=== PATIENT | female | born 2005 | race Hispanic/Latino ===

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

== ENCOUNTER 2024-09-27 08:39 | Emergency (ER) | payer SELFPAY ==
[2024-09-27] MEDS ORDERED: KETOROLAC 30 MG/ML INJ ONE (09:04)
[2024-09-27] MEDS ORDERED: ONDANSETRON 4 MG/2 ML VIAL ONE (09:04)
[2024-09-27] MEDS ORDERED: DICYCLOMINE HCL 20 MG/2 ML AMP IM ONE (09:05)
[2024-09-27] MEDS ORDERED: FAMOTIDINE 20 MG/2 ML VIAL IV ONE (09:05)
[2024-09-27] MEDS ORDERED: NA CHLORIDE 0.9% 1,000 ML ONE (09:05)
[2024-09-27 09:33] LABS: Absolute Lymphocytes (CBC) 0.5 K/uL (0.7-4.9); Absolute Monocytes 0.4 K/uL (0.1-1.3); Absolute Neutrophil 15.1 K/uL (1.8-8.0); Basophils % 0.2 % (0-1.3); Hematocrit 43.1 % (36.0-45.0); Hemoglobin 14.7 g/dL (12.0-15.0); Lymphocytes % 3.3 % (15.3-44.8); MCH 30.9 pg (27.0-35.0); MCHC 34.1 g/dL (32.0-36.0); MCV 90.7 fL (80-100); MPV 7.6 fL (7.6-11.3); Monocytes % 2.6 % (3.3-12.3); Neutrophils % 93.9 % (41.7-73.7); Platelets 281 thou/uL (152-406); RBC Red Blood Cell Count 4.75 M/uL (3.86-4.86); Red Cell Distribution Width 12.8 % (12.1-15.2)
[2024-09-27 09:43] LABS: Albumin 4.8 g/dL (3.4-5.0); Albumin/Globulin Ratio 1.2 (1.1-1.8); Anion Gap 8.5 mEq/L (5.0-15.0); Bilirubin Total 0.5 mg/dL (0.2-1.0); Globulin 3.9 g/dL (2.3-3.5); Potassium 3.5 mEq/L (3.5-5.1); Protein, Total 8.7 g/dL (6.4-8.2)
[2024-09-27 10:13] LABS: Blood Morphology Comment NOT SEEN (NOT SEEN); Platelet Estimate ADEQ; White Blood Cell Scan OK (OK)
[2024-09-27] MEDS ORDERED: droPERidol 5 MG/2 ML VIAL ONE (10:17)
[2024-09-27] MEDS ORDERED: MAGNES/ALUMIN/SIMET 30ML UCUP ONE (10:17)
[2024-09-27] MEDS ORDERED: LIDOCAINE VISCOUS 2% 10ML ORAL SOLN ONE (10:18)
--- NOTE | 2024-09-27 11:08 | RAD REPORT ---
EXAMINATION: CT ABDOMEN AND PELVIS WITH CONTRAST CLINICAL INDICATION: Abdominal pain TECHNIQUE: CT abdomen and pelvis was performed, after the administration of 100 cc Isovue-300.. Sagit miguel angel and coronal reconstructions were obtained. One or more of the following dose reduction techniques were used: Automated exposure control, adjustment of the mA and kV according to patient si ze, and iterative reconstruction. Unless otherwise specified, incidental findings do not require dedicated imaging follow-up. [id number]. Oral contrast was not given which limits evaluation of bowel and appendix. COMPARISON: none FINDINGS: Liver, spleen, pancreas, adrenals and kidneys appear unremarkable The wall of several loops of jejunum thickened. No adnexal mass. Although the appendix is mildly dilated. It does not contain fluid. It mostly contains air. The wall does not appear edematous. Several small areas of increased density are present within the appendix. There is no stranding within the adjacent fat. No evidence of diverticulitis. Small calcification right lower quadrant probably a phlebolith. : IMPRESSION: Thickening of the wall of several loops of jejunum may indicate inflammation. Several small areas of increased density within the appendix could represent appendicoliths or contra st from previous imaging. Although the appendix is mildly dilated appendicitis is not suspected. However, if the patient continues to have symptoms to suggest this then follow-up CT with oral contra st and opacification of the terminal ileum/cecum would be recommended
--- NOTE | 2024-09-27 11:39 | ER ---
Nurse's Notes [facility] Name: Racheal Coughlin Age: 18 yrs Sex: Female : 2005 Arrival Date: 09/27/2024 Time: 08:39 Bed 20 Private MD: Diagnosis: Other viral enteritis Presentation: 09/27 08:55 Chief complaint: N/V/D and abdominal pain since last night. Not tolerating fluids. hb Coronavirus screen: Client presents with at least one sign or symptom that may indicate coronavirus-19. Standard/surgical mask placed on the client. Provider contacted for isolation considerations. Ebola Screen: No symptoms or risks identified at this time. Initial Sepsis Screen: Does the patient meet any 2 criteria? No. Patient's initial sepsis screen is negative. Does the patient have a suspected source of infection? No. Patient's initial sepsis screen is negative. Risk Assessment: Do you want to hurt yourself or someone else? Patient reports no desire to harm self or others. Onset of symptoms was September 26, 2024. 08:55 Method Of Arrival: Ambulatory 08:55 Acuity: SOLIS 3 hb Historical: - Allergies: 08:56 No Known Allergies; hb - Home Meds: 08:56 None [Active]; hb - PMHx: 08:56 None; hb - PSHx: 08:56 None; hb - Immunization history:: Adult Immunizations up to date. - Infectious Disease History:: Denies. - Social history:: Smoking status: Patient denies any tobacco usage or history of. - Family history:: not pertinent. Screenin:22 [facility] ED Fall Risk Assessment (Adult) History of falling in the last 3 months, kc6 including since admission No falls in past 3 months (0 pts) Confusion or Disorientation No (0 pts) Intoxicated or Sedated No (0 pts) Impaired Gait No (0 pts) Mobility Assist Device Used No (0 pt) Altered Elimination No (0 pt) Score/Fall Risk Level 0 - 2 = Low Risk Oriented to surroundings. Abuse screen: Denies threats or abuse. Denies injuries from another. Nutritional screening: No deficits noted. Tuberculosis screening: No symptoms or risk factors identified. Assessment: 09:21 General: Appears in no apparent distress. uncomfortable, well groomed, well developed, kc6 Behavior is cooperative, agitated. Pain: Complains of pain in abdomen. Neuro: Level of Consciousness is awake, alert, obeys commands, Oriented to person, place, time, situation, Appropriate for age. Cardiovascular: Capillary refill < 3 seconds. Respiratory: Airway is patent Trachea midline Respiratory effort is even, unlabored, Respiratory pattern is regular, symmetrical. GI: Abdomen is flat, non-distended, Pt is actively vomiting bile, Reports diarrhea, intolerance of fluids, intolerance of food, nausea, vomiting. : No signs and/or symptoms were reported regarding the genitourinary system. EENT: No signs and/or symptoms were reported regarding the EENT system. Derm: No signs and/or symptoms reported regarding the dermatologic system. Skin is intact, is healthy with good turgor, Skin is pink, warm \T\ dry. Musculoskeletal: No signs and/or symptoms reported regarding the musculoskeletal system. Circulation, motion, and sensation intact. Capillary refill < 3 seconds, Range of motion: intact in all extremities. 10:21 Reassessment: Patient appears in no apparent distress at this time. No changes from kc6 previously documented assessment. Patient and/or family updated on plan of care and expected duration. Pain level reassessed. Patient is alert, oriented x 3, equal unlabored respirations, skin warm/dry/pink. 11:12 Reassessment: Patient appears in no apparent distress at this time. No changes from kc6 previously documented assessment. Patient and/or family updated on plan of care and expected duration. Pain level reassessed. Patient is alert, oriented x 3, equal unlabored respirations, skin warm/dry/pink. Vital Signs: 08:55 BP 159 / 104; Pulse 64; Resp 16; Temp 97.7(O); Pulse Ox 100% on R/A; Weight 54.43 kg; hb Height 5 ft. 3 in. ; Pain 8/10; 09:57 BP 110 / 86; Pulse 75; Resp 18 S; Pulse Ox 100% on R/A; kc6 08:55 Body Mass Index 21.26 (54.43 kg, 160.02 cm) - Percentile 44.3 % hb 08:55 Pain Scale: Adult hb ED Course: 08:43 Patient arrived in ED. sj2 08:56 Triage completed. hb 08:57 Evelyne Alcantara, MANJIT is Primary Nurse. kc6 08:57 Henry Roach MD is Attending Physician. rt 08:57 Arm band placed on. hb 09:22 Patient has correct armband on for positive identification. Bed in low position. Call kc6 light in reach. Side rails up X 1. Adult w/ patient. Pulse ox on. NIBP on. Door closed. Noise minimized. Lights dimmed. Warm blanket given. Pillow given. 09:22 Inserted saline lock: 22 gauge in right antecubital area, using aseptic technique. kc6 Blood collected. Flushed with 10 mL NS. Patient maintains SpO2 saturation greater than 95% on room air. 10:41 CT Abd/Pelvis - IV Contrast Only In Process Unspecified. EDMS 10:54 Diet: Patient given water. Tolerated well. kc6 11:48 No provider procedures requiring assistance completed. IV discontinued, intact, kc6 bleeding controlled, No redness/swelling at site. Pressure dressing applied. Administered Medications: 09:20 Drug: TORadol - Ketorolac IVP 15 mg IVP once Route: IVP; Site: right antecubital; kc6 09:51 Follow up: Response: No adverse reaction; Pain is unchanged, physician notified kc6 09:20 Drug: NS 0.9% IV 1000 ml IV at 1 bolus Per protocol; to be given as a bolus over 60 kc6 minutes Route: IV; Rate: 1 bolus; Site: right antecubital; 10:22 Follow up: Response: No adverse reaction; IV Status: Completed infusion; IV Intake: kc6 1000ml 09:20 Drug: Dicyclomine IM 20 mg IM once Route: IM; Site: left deltoid; kc6 09:51 Follow up: Response: No adverse reaction; Pain is unchanged, physician notified kc6 09:21 Drug: Famotidine IVP 20 mg IVP once; dilute with 10 mL 0.9% NaCl; give over 2 minutes kc6 Route: IVP; Site: right antecubital; 09:51 Follow up: Response: No adverse reaction kc6 09:21 Drug: Ondansetron IVP 4 mg IVP once; over 2 minutes Route: IVP; Site: right antecubital;kc6 09:51 Follow up: Response: No adverse reaction; Nausea is decreased; Vomiting decreased kc6 10:22 Drug: Droperidol IVP 0.625 mg IVP once Route: IVP; Site: right antecubital; kc6 11:10 Follow up: Response: No adverse reaction; Pain is decreased; Nausea is decreased kc6 10:22 Drug: GI Cocktail without - (Maalox PO 30 ml, Lidocaine Mucous Membrane 2 % 15 kc6 ml) PO once Route: PO; 11:10 Follow up: Response: No adverse reaction kc6 Medication: 11:48 VIS not applicable for this client. kc6 Intake: 10:22 IV: 1000ml; Total: 1000ml. kc6 Outcome: 11:38 Discharge ordered by . rt 11:48 Discharged to home ambulatory, with family, kc6 11:48 Condition: improved 11:48 Discharge instructions given to patient, family, Instructed on discharge instructions, follow up and referral plans. medication usage, Demonstrated understanding of instructions, follow-up care, medications, Prescriptions given X 2, 11:48 Patient left the ED. kc6 Signatures: Dispatcher [employer] EDMS Tiana Chambers RN RN Evelyne Alcantara RN RN kc6 Henry Roach MD MD rt Mary Ann Bedolla sj2 Corrections: (The following items were deleted from the chart) 08:57 08:55 Chief complaint: N/V/D and abdominal pain since last night. hb hb
--- NOTE | 2024-09-27 11:39 | EDPHYS ---
Physician Documentation [facility] Name: Racheal Coughlin Age: 18 yrs Sex: Female : 2005 Arrival Date: 09/27/2024 Time: 08:39 Bed 20 Private MD: ED Physician Henry Roach HPI: 09/27 12:58 This 18 yrs old Female presents to ER via Ambulatory with complaints of rt Nausea/Vomiting/Diarrhea, Abdominal Pain. 12:58 Patient presents to the ED with nausea, vomiting, generalized abdominal pain starting rt last night. Patient has not been able to keep anything down by mouth. Denies hematemesis, hematochezia. Denies other acute complaints, symptoms are moderate in severity, no other aggravating or alleviating factors.. Historical: - Allergies: 08:56 No Known Allergies; hb - Home Meds: 08:56 None [Active]; hb - PMHx: 08:56 None; hb - PSHx: 08:56 None; hb - Immunization history:: Adult Immunizations up to date. - Infectious Disease History:: Denies. - Social history:: Smoking status: Patient denies any tobacco usage or history of. - Family history:: not pertinent. ROS: 12:58 Constitutional: Negative for fever, chills, and weight loss, Cardiovascular: Negative rt for chest pain, palpitations, and edema, Respiratory: Negative for shortness of breath, cough, wheezing, and pleuritic chest pain, MS/Extremity: Negative for injury and deformity, Skin: Negative for injury, rash, and discoloration, Neuro: Negative for headache, weakness, numbness, tingling, and seizure, 12:58 Abdomen/GI: Positive for abdominal pain, nausea, vomiting, and diarrhea, Exam: 13:02 Constitutional: This is a well developed, well nourished patient who is awake, alert, rt and in no acute distress. Head/Face: Normocephalic, atraumatic. Chest/axilla: Normal chest wall appearance and motion. Nontender with no deformity. No lesions are appreciated. Cardiovascular: Regular rate and rhythm with a normal S1 and S2. No gallops, murmurs, or rubs. Normal PMI, no JVD. No pulse deficits. Respiratory: Lungs have equal breath sounds bilaterally, clear to auscultation and percussion. No rales, rhonchi or wheezes noted. No increased work of breathing, no retractions or nasal flaring. 13:02 Abdomen/GI: No tenderness to palpation, distention, Vital Signs: 08:55 BP 159 / 104; Pulse 64; Resp 16; Temp 97.7(O); Pulse Ox 100% on R/A; Weight 54.43 kg; hb Height 5 ft. 3 in. ; Pain 8/10; 09:57 BP 110 / 86; Pulse 75; Resp 18 S; Pulse Ox 100% on R/A; kc6 08:55 Body Mass Index 21.26 (54.43 kg, 160.02 cm) - Percentile 44.3 % hb 08:55 Pain Scale: Adult hb MDM: 08:57 Medical Screening Exam initiated rt 13:17 Differential diagnosis: Gastroenteritis, pancreatitis, cyclic vomiting. Data reviewed: rt vital signs, nurses notes, lab test result(s), radiologic studies. I considered the following discharge prescriptions or medication management in the emergency department Medications were administered in the Emergency Department. See MAR. Independent interpretation of the following test(s) in the Emergency Department CT Scan: My interpretation is No bowel obstruction seen on interpretation of CT scan images. Test considered but Not performed: Ultrasound Signs and symptoms not consistent with ovarian torsion, cholecystitis, ultrasounds are not indicated. Counseling: I had a detailed discussion with the patient and/or guardian regarding the historical points, exam findings, and any diagnostic results supporting the discharge/admit diagnosis, lab results, radiology results, the need for outpatient follow up, to return to the emergency department if symptoms worsen or persist or if there are any questions or concerns that arise at home, Discussed findings with patient of mildly dilated appendix without signs of appendicitis, return precautions were discussed, she does not require surgical evaluation at this time.. Response to treatment: the patient's symptoms have markedly improved after treatment. 09/27 09:03 Order name: CBC with Diff; Complete Time: 10:14 rt 09/27 09:03 Order name: CMP; Complete Time: 09:53 rt 09/27 09:03 Order name: Lipase; Complete Time: 09:53 rt 09/27 09:03 Order name: Test, Serum; Complete Time: 09:53 rt 09/27 10:13 Order name: CBC Smear Scan; Complete Time: 10:14 EDMS 09/27 10:14 Order name: CT Abd/Pelvis - IV Contrast Only; Complete Time: 11:12 rt 09/27 09:03 Order name: IV Saline Lock; Complete Time: :20 rt 09/27 09:03 Order name: Labs collected and sent; Complete Time: :20 rt Administered Medications: 09:20 Drug: TORadol - Ketorolac IVP 15 mg IVP once Route: IVP; Site: right antecubital; kc6 09:51 Follow up: Response: No adverse reaction; Pain is unchanged, physician notified kc6 09:20 Drug: NS 0.9% IV 1000 ml IV at 1 bolus Per protocol; to be given as a bolus over 60 kc6 minutes Route: IV; Rate: 1 bolus; Site: right antecubital; 10:22 Follow up: Response: No adverse reaction; IV Status: Completed infusion; IV Intake: kc6 1000ml 09:20 Drug: Dicyclomine IM 20 mg IM once Route: IM; Site: left deltoid; kc6 09:51 Follow up: Response: No adverse reaction; Pain is unchanged, physician notified kc6 09:21 Drug: Famotidine IVP 20 mg IVP once; dilute with 10 mL 0.9% NaCl; give over 2 minutes kc6 Route: IVP; Site: right antecubital; 09:51 Follow up: Response: No adverse reaction kc6 09:21 Drug: Ondansetron IVP 4 mg IVP once; over 2 minutes Route: IVP; Site: right antecubital;kc6 09:51 Follow up: Response: No adverse reaction; Nausea is decreased; Vomiting decreased kc6 10:22 Drug: Droperidol IVP 0.625 mg IVP once Route: IVP; Site: right antecubital; kc6 11:10 Follow up: Response: No adverse reaction; Pain is decreased; Nausea is decreased kc6 10:22 Drug: GI Cocktail without - (Maalox PO 30 ml, Lidocaine Mucous Membrane 2 % 15 kc6 ml) PO once Route: PO; 11:10 Follow up: Response: No adverse reaction kc6 Disposition Summary: 09/27/24 11:38 Discharge Ordered Notes: Location: Home rt Problem: new rt Symptoms: have improved rt Condition: Stable rt Diagnosis - Other viral enteritis rt Followup: rt - With: Private Physician - When: 2 - 3 days - Reason: Discharge Instructions: - Discharge Summary Sheet rt - Viral Gastroenteritis, Adult rt Forms: - Work release form em1 - Medication Reconciliation Form rt - Antibiotic Education rt - Prescription Opioid Use rt - Patient Portal Instructions rt - Leadership Thank You Letter rt Prescriptions: - ondansetron 4 mg Oral Tablet,disintegrating - take 1 tablet ORAL route 4 times per day as needed for nausea; 15 tablet; rt Refills: 0, Product Selection Permitted - dicyclomine 20 mg Oral tablet - take 1 tablet ORAL route 4 times per day as needed for abdominal pain; 15 rt tablet; Refills: 0, Product Selection Permitted Signatures: Dispatcher [employer] EDMS Tiana Chambers RN RN Evelyne Alcantara RN RN kc6 Henry Roach MD MD rt Corrections: (The following items were deleted from the chart) 09:04 09:04 CBC+H.LAB.BRZ ordered. EDMS EDMS 09:04 09:04 COMPREHENSIVE METABOLIC PANEL+C.LAB.BRZ ordered. EDMS EDMS 09:04 09:04 LIPASE+C.LAB.BRZ ordered. EDMS EDMS 09:04 09:04 TEST, SERUM+SC.LAB.BRZ ordered. EDMS EDMS
[2024-09-27 11:55] VITALS: TEMP 97.7; O2SAT 100
[2024-09-27 11:56] VITALS: BP 110/86
== END 2024-09-27 11:48 | disposition home or self-care (01) ==
LOC: ER 08:39
DX: A08.39 Other viral enteritis (principal)
CPT/HCPCS: 36415; 74177; 80053; 83690; 84703; 85025; 96361; 96372; 96374; 96375; 99284; J0500; J1790; J2405; J7030; Q9967